=== PATIENT | male | born 1995 | race Caucasian/White ===

== ENCOUNTER 2018-07-03 11:31 | Emergency (ER) | payer BC ==
[2018-07-03 12:00] VITALS: BP 146/93
--- NOTE | 2018-07-03 13:20 | UC ---
Skin Complaint HPI - HPI Summary HPI Summary: HAD SEVERAL INSECT BITES ABOUT A WEEK AGO DURING A TRIP [id number]. SINCE THEN 1 ON HIS LEFT FIGUEROA HAS BECOME MORE RED AND PAINFUL. HE DENIES ANY FEVER OR DRAINAGE. - History of Current Complaint Chief Complaint: UCSkin Time Seen by Provider: 07/03/18 13:02 Stated Complaint: SKIN ISSUE Hx Obtained From: Patient Onset/Duration: Gradual Onset, Lasting Days, Still Present Timing: Constant Onset Severity: Moderate Current Severity: Moderate Pain Intensity: 4 Pain Scale Used: 0-10 Numeric Location: Discrete - LEFT FIGUEROA Character: Pain, Redness, Raised Aggravating Factor(s): Touch Alleviating Factor(s): Nothing Associated Signs & Symptoms: Positive: Tenderness Related History: Insect Bite/Sting - Allergy/Home Medications Allergies/Adverse Reactions: Allergies Allergy/AdvReac Type Severity Reaction Status Date / Time No Known Allergies Allergy Verified 07/03/18 12:00 Home Medications: Home Medications Ibuprofen 800 mg PO ONCE PRN 07/03/18 [History Confirmed 07/03/18] Review of Systems Constitutional: Negative Skin: Other - ERYTHEMA Respiratory: Negative Cardiovascular: Negative Gastrointestinal: Negative All Other Systems Reviewed And Are Negative: Yes PMH/Surg Hx/FS Hx/Imm Hx Cardiovascular History: Hypertension - Surgical History Surgical History: Yes Surgery Procedure, Year, and Place: right ankle surgery - Family History Known Family History: Positive: Hypertension - Social History Alcohol Use: Daily Substance Use Type: None Smoking Status (MU): Never Smoked Tobacco Physical Exam Triage Information Reviewed: Yes Appearance: Well-Appearing, No Pain Distress, Well-Nourished Vital Signs: Initial Vital Signs Temp 98.9 F 07/03/18 11:55 Pulse 76 07/03/18 11:55 Resp 18 07/03/18 11:55 BP 146/93 07/03/18 11:55 Pulse Ox 100 07/03/18 11:55 Vital Signs Reviewed: Yes Eyes: Positive: Conjunctiva Clear ENT: Positive: Hearing grossly normal Neck: Positive: Supple Respiratory: Positive: No respiratory distress, No accessory muscle use Cardiovascular: Positive: Pulses Normal Abdomen Description: Positive: Soft Musculoskeletal: Positive: No Edema Neurological: Positive: Alert Psychological: Positive: Age Appropriate Behavior Skin: Positive: Other - 7CM X 11CM AREA OF ERTHEMA SURROUNDING A RAISED INSECT BITE. TENDER. NO DRAINAGE OR FLUCTUANCE Course/Dx - Diagnoses Provider Diagnoses: CELLULITIS Discharge - Sign-Out/Discharge Documenting (check all that apply): Patient Departure All imaging exams completed and their final reports reviewed: No Studies - Discharge Plan Condition: Stable Disposition: HOME Prescriptions: Cephalexin CAP* [Keflex 500 CAP*] 1,000 mg PO BID #28 cap Mupirocin 2% OINT* [Bactroban 2 % Oint*] 1 applic TOPICAL BID #1 tube Patient Education Materials: Cellulitis (ED) Referrals: No Primary Care Phys,NOPCP [Primary Care Provider] - Additional Instructions: SEEK FOLLOW-UP IF AFTER 48 HOURS ON ANTIBIOTICS YOU DEVELOP CONTINUED SPREADING REDNESS OF THE SKIN, PURULENT DRAINAGE, FEVER, INCREASED PAIN OR ANY OTHER CONCERNING SYMPTOMS. CALL THE NUMBER BELOW FOR ASSISTANCE IN ESTABLISHING WITH A PCP An additional resource available to assist in finding the appropriate physician for your health care needs is the [facility] ([facility]). You may contact them by calling [phone]. - Billing Disposition and Condition Condition: STABLE Disposition: Home
== END 2018-07-03 13:18 | disposition home or self-care (01) ==
LOC: UCEAST 11:31
DX: L03.116 Cellulitis of left lower limb (principal); I10 Essential (primary) hypertension
CPT/HCPCS: 99202; G0463

== ENCOUNTER 2018-07-10 12:48 | Emergency (ER) | payer BC ==
[2018-07-10 12:57] VITALS: BP 150/92
--- NOTE | 2018-07-10 13:50 | UC ---
Skin Complaint HPI - HPI Summary HPI Summary: PATIENT SEEN HERE ONE WEEK AGO AND DIAGNOSED WITH CELLULITIS OF HIS LEFT FIGUEROA. TOOK 7 DAYS OF KEFLEX WITH IMPROVEMENT IN SYMPTOMS BUT PATIENT STATES SLIGHTLY TENDER AREA OF REDNESS IS STILL PRESENT. NO FEVER. ALSO COMPLAINS OF ABOUT 2 DAYS OF LEFT EAR FEELING CLOGGED. PATIENT HAS A HISTORY OF CERUMEN BUILDUP. - History of Current Complaint Chief Complaint: UCLowerExtremity Time Seen by Provider: 07/10/18 13:37 Stated Complaint: LEG PAIN, EAR COMPLAINT Hx Obtained From: Patient Onset/Duration: Gradual Onset, Lasting Weeks, Still Present Timing: Constant Onset Severity: Moderate Current Severity: Mild Pain Intensity: 1 Pain Scale Used: 0-10 Numeric Character: Redness, Painful Aggravating Factor(s): Touch Associated Signs & Symptoms: Positive: Tenderness. Negative: Fever Related History: Insect Bite/Sting - Allergy/Home Medications Allergies/Adverse Reactions: Allergies Allergy/AdvReac Type Severity Reaction Status Date / Time No Known Allergies Allergy Verified 07/10/18 12:57 Review of Systems Constitutional: Negative Skin: Other - ERYTHEMA ENT: Ear Ache Respiratory: Negative Cardiovascular: Negative Gastrointestinal: Negative All Other Systems Reviewed And Are Negative: Yes PMH/Surg Hx/FS Hx/Imm Hx Cardiovascular History: Hypertension - Surgical History Surgical History: Yes Surgery Procedure, Year, and Place: right ankle surgery - Family History Known Family History: Positive: Hypertension - Social History Alcohol Use: Daily Substance Use Type: None Smoking Status (MU): Never Smoked Tobacco Physical Exam Triage Information Reviewed: Yes Appearance: Well-Appearing, No Pain Distress, Well-Nourished Vital Signs: Initial Vital Signs Temp 98.7 F 07/10/18 12:54 Pulse 74 07/10/18 12:54 Resp 18 07/10/18 12:54 BP 150/92 07/10/18 12:54 Pulse Ox 100 07/10/18 12:54 Vital Signs Reviewed: Yes Eyes: Positive: Conjunctiva Clear - Hammering ENT: Positive: Hearing grossly normal, Pharynx normal, TMs normal, Other - CERUMEN IN BILAT EAC Neck: Positive: Supple Respiratory: Positive: No respiratory distress, No accessory muscle use Cardiovascular: Positive: Pulses Normal Abdomen Description: Positive: Soft Musculoskeletal: Positive: No Edema Neurological: Positive: Alert Psychological: Positive: Age Appropriate Behavior Skin: Positive: Other - 6CM DIAMETER AREA OF ERYTHEMA LEFT FIGUEROA WITH CENTRALLY LOCATED SCAB. MILDLY TENDER Course/Dx - Course Course Of Treatment: CERUMEN SUCCESSFULLY IRRIGATED BY RN. BACTRIM FOR CELLULITIS. PT ADVISED TO GO TO ED IF 2ND COURSE OF ABX NOT EFFECTIVE. - Diagnoses Provider Diagnoses: 1. CELLULITIS LEFT FIGUEROA. 2. CERUMEN IMPACTION - BILATERAL Discharge - Sign-Out/Discharge Documenting (check all that apply): Patient Departure All imaging exams completed and their final reports reviewed: No Studies - Discharge Plan Condition: Stable Disposition: HOME Prescriptions: Sulfamethox/Trimethoprim DS* [Bactrim DS 800/160 TAB*] 1 tab PO BID #20 tab Patient Education Materials: Cellulitis (ED), Cerumen Impaction (ED) Referrals: No Primary Care Phys,NOPCP [Primary Care Provider] - Additional Instructions: NOW THAT YOUR EAR CANALS ARE CLEAR OF WAX YOU MAY USE A QTIP TO GENTLY AND CAREFULLY CLEAN YOUR EARS ONCE OR TWICE A WEEK TO KEEP WAX FROM BUILDING UP. DO NOT INSERT THE QTIP ANY FURTHER THAN THE DEPTH OF THE [place]. CALL THE NUMBER BELOW FOR ASSISTANCE IN ESTABLISHING WITH A PCP An additional resource available to assist in finding the appropriate physician for your health care needs is the [facility] ([facility]). You may contact them by calling [phone]. - Billing Disposition and Condition Condition: STABLE Disposition: Home
== END 2018-07-10 14:25 | disposition home or self-care (01) ==
LOC: UCEAST 12:48
DX: L03.116 Cellulitis of left lower limb (principal); H61.23 Impacted cerumen, bilateral
CPT/HCPCS: 99212; G0463

== ENCOUNTER 2019-03-02 16:55 | Emergency (ER) | payer BC ==
--- OUTSIDE RECORDS SUMMARY | 2019-03-02 17:02 | XMS REPORT | Continuity of Care Document ---
:1995 External Reference #:[id number] Author Name Bernadette Brumfield Care Team Providers Name Role Phone Patient's Choice Primary Care Physician Unavailable Payers Date Identification Numbers Payment Provider Subscriber Policy Number: [id number] [facility] Shaun Feng PayID: [id number] [address] [address] [place] [address] Social History Type Date Description Comments Sex Unknown Lives With Alone Occupation Currently Working Occupation [employer] Supervisor ETOH Use Drinks 4 Alcoholic Beverages Per Week Tobacco Use Start: Unknown End: Patient is a former smoker Unknown Smoking Status Reviewed: 02/16/19 Patient is a former smoker Exercise Type/Frequency Exercises regularly Allergies, Adverse Reactions, Alerts Description No Known Drug Allergies Vital Signs Date Vital Result Comment 02/16/2019 1:43pm Height 72 inches 6'0" Weight 248.75 lb Heart Rate 68 /min BP Systolic 126 mmHg BP Diastolic 74 mmHg Respiratory Rate 14 /min Body Temperature 97.1 F Pain Level 6 BMI (Body Mass Index) 33.7 kg/m2 Plan of Treatment Future Appointment(s):03/09/2019 8:30 am - [facility]
[2019-03-02 17:43] VITALS: BP 140/80
[2019-03-02] MEDS ORDERED: Docusate LIQ* 100 MG/10 ML UDC PO ONE (18:17)
--- NOTE | 2019-03-02 19:09 | UC ---
Ear Complaint HPI - HPI Summary HPI Summary: 23-year-old male with a history of cerumen impaction presents with complaints of bilateral ear fullness and diminished hearing. Denies fever, chills, nasal congestion, runny nose, ear pain, sore throat, or cough. - History of Current Complaint Chief Complaint: UCEar Stated Complaint: RIGHT EAR CLOGGED Time Seen by Provider: 03/02/19 17:45 Hx Obtained From: Patient Pain Intensity: 0 - Allergies/Home Medications Allergies/Adverse Reactions: Allergies Allergy/AdvReac Type Severity Reaction Status Date / Time No Known Allergies Allergy Verified 03/02/19 17:43 Home Medications: Home Medications NK [No Home Medications Reported] 03/02/19 [History Confirmed 03/02/19] PMH/Surg Hx/FS Hx/Imm Hx Previously Healthy: Yes - Denies significant PMH - Surgical History Surgical History: Yes Surgery Procedure, Year, and Place: right ankle surgery - Family History Known Family History: Positive: Hypertension - Social History Occupation: Employed Full-time Lives: Alone Alcohol Use: Weekly Substance Use Type: None Smoking Status (MU): Former Smoker When Did the Patient Quit Smoking/Using Tobacco: 2016 Review of Systems All Other Systems Reviewed And Are Negative: Yes Constitutional: Negative: Fever, Chills ENT: Positive: Other - See HPI. Negative: Sore Throat, Ear Ache, Nasal Discharge, Sinus Congestion, Sinus Pain/Tenderness Respiratory: Positive: Negative Cardiovascular: Positive: Negative Gastrointestinal: Positive: Negative Genitourinary: Positive: Negative Musculoskeletal: Positive: Negative Neurological: Positive: Negative Is Patient Immunocompromised?: No Physical Exam Triage Information Reviewed: Yes Appearance: Well-Appearing, No Pain Distress, Well-Nourished Vital Signs: Initial Vital Signs Temp 98.7 F 03/02/19 17:40 Pulse 66 03/02/19 17:40 Resp 12 03/02/19 17:40 BP 140/80 03/02/19 17:40 Pulse Ox 99 03/02/19 17:40 Vital Signs Reviewed: Yes Eyes: Positive: Conjunctiva Clear. Negative: Discharge ENT: Positive: Pharynx normal, Uvula midline, Other - Bilateral cerumen impaction. TMs not visualized.. Negative: Nasal congestion, Nasal drainage Neck: Positive: Supple, Nontender, No Lymphadenopathy Respiratory: Positive: Lungs clear, Normal breath sounds, No respiratory distress, No accessory muscle use Cardiovascular: Positive: RRR, No Murmur, Pulses Normal, Brisk Capillary Refill Abdomen Description: Positive: Nontender, No Organomegaly, Soft Bowel Sounds: Positive: Present Musculoskeletal Exam: Normal Neurological: Positive: Alert Skin Exam: Normal Re-Evaluation - Re-Evaluation First Eval Re-Evaluation Time: 19:10 Change: Improved Comment: Post irrigation patient reports hearing is much improved and fullness has resolved. Exam reveals bilaterally clear external auditory canals. TMs are intact, opaque, with good cone of light. Ear Complaint Course/Dx - Course Course Of Treatment: 23-year-old male with a history of cerumen impaction presents with complaints of bilateral ear fullness and diminished hearing. Denies fever, chills, nasal congestion, runny nose, ear pain, sore throat, or cough. Afebrile. Hypertensive otherwise vital signs stable. Patient had bilateral impacted cerumen but otherwise unremarkable exam. The ears were irrigated by the RN who reported that there was some continued heart cerumen therefore we instilled some liquid Colace and allowed to dwell for approximately 15 minutes and then was reirrigated. After second irrigation patient reported significant improvement in symptoms. Posterior exam showed bilateral clear external auditory canals, intact TMs that are opaque with a good cone of light. Patient is to return here for follow-up with his primary care provider as needed. Anticipatory guidance and warning symptoms were reviewed with the patient. Verbalizes understanding and agrees with plan of care. - Differential Dx/Diagnosis Differential Diagnosis/HQI/PQRI: Cerumen Impaction, Otitis Externa, Otitis Media Provider Diagnosis: Bilateral impacted cerumen Discharge - Sign-Out/Discharge Documenting (check all that apply): Patient Departure All imaging exams completed and their final reports reviewed: No Studies - Discharge Plan Condition: Stable Disposition: HOME Patient Education Materials: Cerumen Impaction (ED) Referrals: No Primary Care Phys,NOPCP [Primary Care Provider] - Additional Instructions: We were able to successfully remove the earwax impaction from both ears. Return here or follow-up with your primary care provider as needed. Seek immediate medical attention if you develop any fever, ear pain, drainage or bleeding from the ear, hearing loss, or any worsening of symptoms. - Billing Disposition and Condition Condition: STABLE Disposition: Home - Attestation Statements Provider Attestation: Per institutional requirements, I have reviewed the chart, however, I was not consulted specifically or made aware of this patient by the midlevel provider. I did not personally evaluate, interact with , or disposition this patient.
== END 2019-03-02 19:23 | disposition home or self-care (01) ==
LOC: UCEAST 16:55
DX: H61.23 Impacted cerumen, bilateral (principal); Z87.891 Personal history of nicotine dependence
CPT/HCPCS: 99213; A9270-GY; G0463